=== PATIENT | male | born 1985 ===

== ENCOUNTER 2020-12-23 22:12 | Observation (INO) | payer SELFPAY ==
[2020-12-24] MEDS: BENZONATATE 100 MG CAP PO SCH (00:23)
[2020-12-24 01:23] LABS: Basophils % (Auto) 0.3 % (0.0-1.8); Eosinophils % (Auto) 0.1 % (0.0-4.3); Hematocrit 44.3 % (35.5-45.6); Hemoglobin 14.9 gm/dl (11.8-15.2); Lymphocytes # (Auto) 1.5 K/mm3 (1.2-5.4); Mean Corpuscular HGB Conc 34 % (32-34); Mean Corpuscular Volume 87 fl (84-94); Monocytes # (Auto) 0.6 K/mm3 (0.0-0.8); Monocytes % (Auto) 4.9 % (0.0-7.3); Platelet Count 310 K/mm3 (140-440); Red Blood Count 5.07 M/mm3 (3.65-5.03); Red Cell Distribution Width 13.9 % (13.2-15.2)
[2020-12-24 01:42] LABS: Alanine Aminotransferase 49 units/L (7-56); Albumin 4.9 g/dL (3.9-5); BUN/Creatinine Ratio 30; Blood Urea Nitrogen 18 mg/dL (9-20); Calcium 9.9 mg/dL (8.4-10.2); Hemolysis Index 5
[2020-12-24 01:46] LABS: Bilirubin,Urine NEG (Negative); Blood,Urine NEG (Negative); Color,Urine Amber (Yellow); Mucus,Urine 3+ /HPF
[2020-12-24] MEDS ORDERED: SODIUM CHLORIDE 0.9% 1000 ML 1,000 ML IV ONE (03:53)
[2020-12-24] MEDS ORDERED: MORPHINE 4 MG/1 ML INJ IV ONE (03:53)
[2020-12-24] MEDS ORDERED: ONDANSETRON 4 MG/2 ML INJ IV ONE (03:53)
--- NOTE | 2020-12-24 03:56 | Emergency Department Report ---
ED General Adult HPI - General Chief complaint: Abdominal Pain Stated complaint: AB PAIN Time Seen by Provider: 12/24/20 03:38 Source: patient Mode of arrival: Ambulatory Limitations: No Limitations - History of Present Illness Initial comments: 35-year-old male patient with history of alcohol use presents to the emergency department with complaints of abdominal pain, nausea, and vomiting starting yesterday. Pain is localized to the epigastric area. No history of similar symptoms. Bowel movements have been normal. No known sick contacts. Patient has been sober for the last 2 months. He used to drink approximately 6 drinks every week. No prior surgeries. Took Tylenol prior to arrival with limited relief. Denies fever, chills, hematemesis, black/bloody stools, skin color changes. Denies all other complaints at this time. - Related Data Allergies Allergy/AdvReac Type Severity Reaction Status Date / Time No Known Allergies Allergy Verified 12/24/20 00:52 ED Review of Systems ROS: Stated complaint: AB PAIN Other details as noted in HPI Other: GENERAL: Negative for fever, chills, weight change, anorexia, fatigue. ENT: Negative for ear pain, difficulty hearing, sore throat, nasal congestion, epistaxis. CARDIOVASCULAR: Negative for chest pain, palpitations, lower extremity swelling. PULMONARY: Negative for cough, dyspnea, wheezing, orthopnea, cyanosis. GASTROINTESTINAL: Positive for abdominal pain, nausea, vomiting. MUSCULOSKELETAL: Negative for joint pain, joint swelling, myalgias, back pain, neck pain. NEUROLOGICAL: Negative for headache, seizure, syncope, paresthesias, weakness. INTEGUMENTARY: Negative for erythema, rash, diaphoresis, laceration, ecchymosis. HEMATOLOGICAL: Negative for hemoptysis, hematemesis, hematochezia, hematuria. PSYCHIATRIC: Negative for hallucinations, suicidal ideation, homicidal ideation, anxiety, depression. ED Past Medical Hx - Past Medical History Previous Medical History?: No - Surgical History Past Surgical History?: No - Social History Smoking Status: Never Smoker Substance Use Type: None ED Physical Exam - General Limitations: No Limitations - Other Other exam information: General: Awake and alert. No acute distress. Head: Atraumatic, normocephalic. Eyes: EOMI. Pupils are equal and round. Normal sclera and conjunctiva. ENT: Oral mucosa is moist. Normal pharyngeal exam. Neck: Supple. No lymphadenopathy. Pulmonary: No respiratory distress. Clear to auscultation bilaterally. Cardiac: Regular rate and rhythm. Pulses are palpable and equal bilaterally. No lower extremity cyanosis or edema. Skin: Warm and dry. No rashes. Abdomen: Soft, non-protuberant. Diffuse abdominal tenderness most pronounced along the epigastric area without guarding, rigidity, or rebound. Bowel sounds are normal. No organomegaly or masses noted. Back: Normal alignment. No CVA tenderness. Extremities: Symmetrical. Full range of motion intact. Neurological: Alert and oriented, appropriately interactive, no focal deficits. Psych: Cooperative. Appropriate mood and affect. Speech is evenly metered. Thoughts are logically construed. ED Course Vital Signs 12/24/20 00:49 Temperature 98.0 F Pulse Rate 48 L Respiratory 18 Rate Blood Pressure 135/91 [Left] O2 Sat by Pulse 99 Oximetry ED Medical Decision Making - Lab Data Result diagrams: 12/24/20 00:55 12/24/20 00:55 - Radiology Data [facility] [address] [place] [address] Cat Scan Report Signed Patient: LISA DOMINGUEZ MR#: [id number] 42 : 1985 Acct:[id number] Age/Sex: 35 / M ADM Date: 12/23/20 Loc: ED Attending Dr: Ordering Physician: RAYMUNDO SUBRAMANIAN Date of Service: 12/24/20 Procedure(s): CT abdomen pelvis w con Accession Number(s): [id number] cc: RAYMUNDO SUBRAMANIAN CT ABDOMEN AND PELVIS WITH CONTRAST INDICATION / CLINICAL INFORMATION: Epigastric pain and vomiting. TECHNIQUE: Axial CT images were obtained through the abdomen and pelvis after Omnipaque 300, [address] scans at this location are performed using CT dose reduction for ALARA by means of automated exposure control. COMPARISON: None available. FINDINGS: LOWER CHEST: No significant abnormality. LIVER: Fatty infiltration of the liver. Subcentimeter cyst lateral segment left hepatic lobe. GALLBLADDER: Gallbladder wall is mildly prominent in thickness. No adjacent inflammation. BILE DUCTS: No significant abnormality. PANCREAS: No significant abnormality. SPLEEN: No significant abnormality. ADRENALS: No significant abnormality. RIGHT KIDNEY / URETER: No significant abnormality. LEFT KIDNEY / URETER: No significant abnormality. STOMACH / SMALL BOWEL: No significant abnormality. COLON: No significant abnormality. APPENDIX: No significant abnormality. PERITONEUM: No free fluid. No free air. No fluid collection. LYMPH NODES: No significant adenopathy. VASCULAR STRUCTURES: No significant abnormality. URINARY BLADDER: No significant abnormality. REPRODUCTIVE ORGANS: No significant abnormality. ADDITIONAL FINDINGS: None. SKELETAL SYSTEM: No significant abnormality. IMPRESSION: 1. Possible early cholecystitis. 2. Large, fatty liver. Signer Name: Sukumar Flanagan MD Signed: 12/24/2020 5:35 AM Workstation Name: [id number] Transcribed By: VÍCTOR Dictated By: Sukumar Flanagan MD Electronically Authenticated By: Sukumar Flanagan MD Signed Date/Time: 12/24/20534 DD/ 9 TD/TT: - Medical Decision Making Differential diagnosis including but not limited to: cholecystitis, pancreatitis, hepatobiliary obstruction, peptic ulcer disease, bowel obstruction, bowel perforation, esophagitis On reevaluation, patient remains stable. Repeat abdominal exam is benign. Labs show mild leukocytosis. CT of the abdomen/pelvis obtained for further evaluation. Enlarged fatty liver present and gallbladder wall is mildly prominent in thickness, suggestive of early cholecystitis. Ordered Zosyn and NPO status. Case discussed with Dr. Quinones, general surgeon, who recommends right upper quadrant ultrasound and agrees to evaluate patient on hospital admission. Case discussed with Dr. Castaneda, hospitalist, who agrees to admit. Patient expressed understanding and is agreeable to plan of care. Critical care attestation.: If time is entered above; I have spent that time in minutes in the direct care of this critically ill patient, excluding procedure time. ED Disposition Clinical Impression: Acute cholecystitis Disposition: ADMITTED INPATIENT Is pt being admited?: Yes Does the pt Need Aspirin: No Condition: Stable Time of Disposition: 06:53
--- NOTE | 2020-12-24 05:39 | Cat Scan Report ---
CT ABDOMEN AND PELVIS WITH CONTRAST INDICATION / CLINICAL INFORMATION: Epigastric pain and vomiting. TECHNIQUE: Axial CT images were obtained through the abdomen and pelvis after Omnipaque 300, 100 cc I V contrast. All CT scans at this location are performed using CT dose reduction for ALARA by means o f automated exposure control. COMPARISON: None available. FINDINGS: LOWER CHEST: No significant abnormality. LIVER: Fatty infiltration of the liver. Subcentimeter cyst lateral segment left hepatic lobe. GALLBLADDER: Gallbladder wall is mildly prominent in thickness. No adjacent inflammation. BILE DUCTS: No significant abnormality. PANCREAS: No significant abnormality. SPLEEN: No significant abnormality. ADRENALS: No significant abnormality. RIGHT KIDNEY / URETER: No significant abnormality. LEFT KIDNEY / URETER: No significant abnormality. STOMACH / SMALL BOWEL: No significant abnormality. COLON: No significant abnormality. APPENDIX: No significant abnormality. PERITONEUM: No free fluid. No free air. No fluid collection. LYMPH NODES: No significant adenopathy. VASCULAR STRUCTURES: No significant abnormality. URINARY BLADDER: No significant abnormality. REPRODUCTIVE ORGANS: No significant abnormality. ADDITIONAL FINDINGS: None. SKELETAL SYSTEM: No significant abnormality. IMPRESSION: 1. Possible early cholecystitis. 2. Large, fatty liver. Signer Name: Sukumar Flanagan MD Signed: 12/24/2020 5:35 AM Workstation Name: [id number]
[2020-12-24] MEDS ORDERED: PIPERACILLIN/TAZOBACTAM 3.375 3.375 GM/50 ML BAG IV ONE (06:16)
--- NOTE | 2020-12-24 07:50 | History and Physical Report ---
History of Present Illness Date of examination: 12/24/20 Date of admission: 12/24/20 06:53 Chief complaint: abdominal pain History of present illness: Patient is a 35-year-old male patient with history of alcohol use presents to the emergency department with complaints of abdominal pain, nausea, and vomiting starting yesterday. Pain is localized to the epigastric area. No history of similar symptoms. Bowel movements have been normal. No known sick contacts. Patient has been sober for the last 2 months. He used to drink approximately 6 drinks every week. No prior surgeries. Took Tylenol prior to arrival with limited relief. Denies fever, chills, hematemesis, black/bloody stools, skin color changes. Denies all other complaints at this time. We are asked to admit the patient for possible cholecystectomy and pain control. He is French speaking, was able to get a little more information. Past History Past Medical History: other Past Surgical History: Other Social history: , alcohol abuse (quit two months ago per pt), full code Family history: no significant family history Medications and Allergies Allergies Allergy/AdvReac Type Severity Reaction Status Date / Time No Known Allergies Allergy Verified 12/24/20 00:52 Active Meds: Active Medications Acetaminophen (Acetaminophen 325 Mg Tab) 650 mg PO Q4H PRN PRN Reason: Pain MILD(1-3)/Fever >100.5/THOMAS Albuterol (Albuterol 2.5 Mg/3 Ml Nebu) 2.5 mg IH Q4HRT PRN PRN Reason: Shortness Of Breath Dextrose (Dextrose 50% In Water (25gm) 50 Ml Syringe) 50 ml IV Q30MIN PRN; Protocol PRN Reason: Hypoglycemia Famotidine (Famotidine 20 Mg/2 Ml Inj) 20 mg IV BID VASILIY Hydromorphone HCl (Hydromorphone 1 Mg/1 Ml Inj) 0.5 mg IV Q3H PRN PRN Reason: Pain , Severe (7-10) Morphine Sulfate (Morphine 2 Mg/1 Ml Inj) 2 mg IV Q4H PRN PRN Reason: Pain, Moderate (4-6) Naloxone HCl (Naloxone 0.4 Mg/1 Ml Inj) 0.1 mg IV Q2MIN PRN PRN Reason: Res Rate </= 8 or 02 SAT < 92% Ondansetron HCl (Ondansetron 4 Mg/2 Ml Inj) 4 mg IV Q8H PRN PRN Reason: Nausea And Vomiting Senna (Sennosides 8.6 Mg Tab) 8.6 mg PO Q12HR PRN PRN Reason: constipation Sodium Chloride (Sodium Chloride 0.9% 10 Ml Flush Syringe) 10 ml IV PRN PRN PRN Reason: LINE FLUSH Review of Systems All systems: negative Constitutional: weakness, malaise, lethargy Gastrointestinal: abdominal pain Musculoskeletal: neck pain, muscle weakness Exam - Physical Exam Narrative exam: VITAL SIGNS: Reviewed. GENERAL: The patient appears normally developed, Vital signs as documented. HEAD: No signs of head trauma. EYES: Pupils are equal. Extraocular motions intact. EARS: Hearing grossly intact. MOUTH: Oropharynx is normal. NECK: No adenopathy, no JVD. CHEST: Chest with clear breath sounds bilaterally. No wheezes, rales, or rhonchi. CARDIAC: Regular rate and rhythm. S1 and S2, without murmurs, gallops, or rubs. VASCULAR: No Edema. Peripheral pulses normal and equal in all extremities. ABDOMEN: Soft, tender right lower quadrant, and non distended. No rebound or guarding, and no masses palpated. Bowel Sounds normal. MUSCULOSKELETAL: Good range of motion of all major joints. Extremities without clubbing, cyanosis or edema. NEUROLOGIC EXAM: Alert and oriented x 3 No focal sensory or strength deficits. Speech normal. Follows commands. PSYCHIATRIC: Mood normal. SKIN: detail exam as documented in skin assessment - Constitutional Vitals: Temp Pulse Resp BP Pulse Ox 98.0 F 48 L 18 135/91 99 12/24/20 00:49 12/24/20 00:49 12/24/20 00:49 12/24/20 00:49 12/24/20 00:49 Results - Labs CBC & Chem 7: 12/24/20 00:55 12/24/20 00:55 Labs: Laboratory Last Values WBC 12.2 K/mm3 (4.5-11.0) H 12/24/20 00:55 RBC 5.07 M/mm3 (3.65-5.03) H 12/24/20 00:55 Hgb 14.9 gm/dl (11.8-15.2) 12/24/20 00:55 Hct 44.3 % (35.5-45.6) 12/24/20 00:55 MCV 87 fl (84-94) 12/24/20 00:55 MCH 29 pg (28-32) 12/24/20 00:55 MCHC 34 % (32-34) 12/24/20 00:55 RDW 13.9 % (13.2-15.2) 12/24/20 00:55 Plt Count 310 K/mm3 (140-440) 12/24/20 00:55 Lymph % (Auto) 12.0 % (13.4-35.0) L 12/24/20 00:55 [place] % (Auto) 4.9 % (0.0-7.3) 12/24/20 00:55 Eos % (Auto) 0.1 % (0.0-4.3) 12/24/20 00:55 Baso % (Auto) 0.3 % (0.0-1.8) 12/24/20 00:55 Lymph # (Auto) 1.5 K/mm3 (1.2-5.4) 12/24/20 00:55 [place] # (Auto) 0.6 K/mm3 (0.0-0.8) 12/24/20 00:55 Eos # (Auto) 0.0 K/mm3 (0.0-0.4) 12/24/20 00:55 Baso # (Auto) 0.0 K/mm3 (0.0-0.1) 12/24/20 00:55 Seg Neutrophils % 82.7 % (40.0-70.0) H 12/24/20 00:55 Seg Neutrophils # 10.1 K/mm3 (1.8-7.7) H 12/24/20 00:55 Sodium 141 mmol/L (137-145) 12/24/20 00:55 Potassium 4.4 mmol/L (3.6-5.0) 12/24/20 00:55 Chloride 102.1 mmol/L (98-107) 12/24/20 00:55 Carbon Dioxide 25 mmol/L (22-30) 12/24/20 00:55 Anion Gap 18 mmol/L 12/24/20 00:55 BUN 18 mg/dL (9-20) 12/24/20 00:55 Creatinine 0.6 mg/dL (0.8-1.3) L 12/24/20 00:55 Estimated GFR > 60 ml/min 12/24/20 00:55 BUN/Creatinine Ratio 30 % 12/24/20 00:55 Glucose 152 mg/dL (75-100) H 12/24/20 00:55 Calcium 9.9 mg/dL (8.4-10.2) 12/24/20 00:55 Magnesium 2.00 mg/dL (1.7-2.3) 12/24/20 03:59 Total Bilirubin 0.40 mg/dL (0.1-1.2) 12/24/20 00:55 AST 34 units/L (5-40) 12/24/20 00:55 ALT 49 units/L (7-56) 12/24/20 00:55 Alkaline Phosphatase 111 units/L (35-129) 12/24/20 00:55 Total Protein 8.1 g/dL (6.3-8.2) 12/24/20 00:55 Albumin 4.9 g/dL (3.9-5) 12/24/20 00:55 Albumin/Globulin Ratio 1.5 % 12/24/20 00:55 Lipase 14 units/L (13-60) 12/24/20 03:59 Urine Color Xochitl (Yellow) 12/24/20 01:05 Urine Turbidity Clear (Clear) 12/24/20 01:05 Urine pH 5.0 (5.0-7.0) 12/24/20 01:05 Ur Specific [place] 1.041 (1.003-1.030) H 12/24/20 01:05 Urine Protein 30 mg/dl mg/dL (Negative) 12/24/20 01:05 Urine Glucose (UA) Neg mg/dL (Negative) 12/24/20 01:05 Urine Ketones Neg mg/dL (Negative) 12/24/20 01:05 Urine Blood Neg (Negative) 12/24/20 01:05 Urine Nitrite Neg (Negative) 12/24/20 01:05 Urine Bilirubin Neg (Negative) 12/24/20 01:05 Urine Urobilinogen 2.0 mg/dL (<2.0) 12/24/20 01:05 Ur Leukocyte Esterase Neg (Negative) 12/24/20 01:05 Urine WBC (Auto) 1.0 /HPF (0.0-6.0) 12/24/20 01:05 Urine RBC (Auto) 6.0 /HPF (0.0-6.0) 12/24/20 01:05 Urine Mucus 3+ /HPF 12/24/20 01:05 Plasma/Serum Alcohol < 0.01 % (0-0.07) 12/24/20 03:59 Assessment and Plan Assessment and plan: Patient is a 35-year-old male patient with history of alcohol use presents to the emergency department with complaints of abdominal pain, nausea, and vomiting starting yesterday. Pain is localized to the epigastric area. No history of similar symptoms. Bowel movements have been normal. No known sick contacts. Patient has been sober for the last 2 months. He used to drink approximately 6 drinks every week. No prior surgeries. Took Tylenol prior to arrival with l imited relief. Denies fever, chills, hematemesis, black/bloody stools, skin color changes. Denies all other complaints at this time. We are asked to admit the patient for possible cholecystectomy and pain control. He is French speaking, was able to get a little more information. Acute cholecystitis ETOH use disorder Leukocytosis possible inflammation Plan Admit to observation to surgical unit surgeon already consulted Abx Culture if fever Monitor for ETOH WITHDRAWAL DVT/GI PROPHY Plan discussed with patient Possible discharge in am. Advance Directives: Yes Plan of care discussed with patient/family: Yes
--- NOTE | 2020-12-24 07:56 | Ultrasound Report ---
LIMITED RUQ ABDOMINAL ULTRASOUND INDICATION: RUQ/epigastric pain - cholecystitis on CT. COMPARISON: CT abdomen pelvis with contrast performed earlier today. FINDINGS: Pancreas: Visualized portions show no significant abnormality. Abdominal Aorta: No significant abnormality. IVC: No significant abnormality. Liver: The liver measures 18.1 cm in length. The liver is mildly enlarged and echogenic consistent w ith steatosis. Normal hepatopedal blood flow in the main portal vein. Gallbladder: Numerous shadowing gallstones are identified in the gallbladder. There is moderate gallb ladder wall thickening measuring up to 6.1 mm. No obvious pericholecystic fluid collection.. Bile ducts: No significant abnormality. Common bile duct measures 3.6 mm. Right kidney: No significant abnormality visualized. Free fluid: None. Additional Findings: None. IMPRESSION: Cholelithiasis. There is moderate gallbladder wall thickening. Acute cholecystitis should be consider ed. Mild hepatomegaly with steatosis.. Signer Name: Antoine Salguero Jr, MD Signed: 12/24/2020 7:51 AM Workstation Name: [id number]
[2020-12-24] MEDS ORDERED: ALBUTEROL 2.5 MG/3 ML NEBU IH PRN (08:00)
[2020-12-24] MEDS ORDERED: PIPERACILLIN/TAZOBACTAM 3.375 3.375 GM/50 ML BAG IV SCH (08:00)
[2020-12-24] MEDS ORDERED: HYDROmorphone 1 MG/1 ML INJ IV PRN (08:00)
[2020-12-24] MEDS ORDERED: ONDANSETRON 4 MG/2 ML INJ IV PRN (08:00)
[2020-12-24] MEDS ORDERED: NALOXONE 0.4 MG/1 ML INJ IV PRN (08:00)
[2020-12-24] MEDS: MORPHINE 2 MG/1 ML INJ IV PRN ×2 (08:00→23:41)
[2020-12-24] MEDS ORDERED: ACETAMINOPHEN 325 MG TAB PO PRN (08:00)
[2020-12-24] MEDS ORDERED: DEXTROSE 50% IN WATER (25GM) 50 ML SYRINGE IV PRN (08:00)
[2020-12-24] MEDS ORDERED: SCOPOLAMINE TRANSDERMAL PATCH 72 HR TD SCH (10:00)
[2020-12-24] MEDS ORDERED: SENNOSIDES 8.6 MG TAB PO PRN (10:00)
--- NOTE | 2020-12-24 11:48 | Consultation ---
History of Present Illness Consult date: 12/24/20 Reason for consult: abdominal pain Chief complaint: Abdominal pain - History of present illness History of present illness: 35-year-old male with no past medical history presents to the emergency room wit h 1 day history of epigastric abdominal pain radiating to the right upper quadrant. Pain is described as sharp and constant. He has never had pain like this in the past. He states that he ate tacos and at approximately 6 PM the pain started. He has experienced nausea and nonbloody/nonbilious emesis. No diarrhea or constipation. No fevers or chills. Past History Past Medical History: No medical history Past Surgical History: No surgical history Social history: no significant social history Family history: no significant family history Medications and Allergies Allergies Allergy/AdvReac Type Severity Reaction Status Date / Time No Known Allergies Allergy Verified 12/24/20 00:52 Active Meds: Active Medications Acetaminophen (Acetaminophen 325 Mg Tab) 650 mg PO Q4H PRN PRN Reason: Pain MILD(1-3)/Fever >100.5/THOMAS Albuterol (Albuterol 2.5 Mg/3 Ml Nebu) 2.5 mg IH Q4HRT PRN PRN Reason: Shortness Of Breath Dextrose (Dextrose 50% In Water (25gm) 50 Ml Syringe) 50 ml IV Q30MIN PRN; Protocol PRN Reason: Hypoglycemia Famotidine (Famotidine 20 Mg/2 Ml Inj) 20 mg IV BID VASILIY Hydromorphone HCl (Hydromorphone 1 Mg/1 Ml Inj) 0.5 mg IV Q3H PRN PRN Reason: Pain , Severe (7-10) Piperacillin Sod/Tazobactam Sod (Zosyn/Ns 4.5gm/100ml) 4.5 gm in 100 mls @ 200 mls/hr IV Q8HR VASILIY Morphine Sulfate (Morphine 2 Mg/1 Ml Inj) 2 mg IV Q4H PRN PRN Reason: Pain, Moderate (4-6) Last Admin: 12/24/20 08:00 Dose: 2 mg Documented by: Naloxone HCl (Naloxone 0.4 Mg/1 Ml Inj) 0.1 mg IV Q2MIN PRN PRN Reason: Res Rate </= 8 or 02 SAT < 92% Ondansetron HCl (Ondansetron 4 Mg/2 Ml Inj) 4 mg IV Q8H PRN PRN Reason: Nausea And Vomiting Last Admin: 12/24/20 08:15 Dose: 4 mg Documented by: Scopolamine (Scopolamine Transdermal Patch 72 Hr) 1 each TD ONCE VASILIY Stop: 12/24/20 13:00 Senna (Sennosides 8.6 Mg Tab) 8.6 mg PO Q12HR PRN PRN Reason: constipation Sodium Chloride (Sodium Chloride 0.9% 10 Ml Flush Syringe) 10 ml IV PRN PRN PRN Reason: LINE FLUSH Review of Systems All systems: negative (10 point ROS performed and negative except for that listed in HPI) Exam Vital Signs Temp Pulse Resp BP Pulse Ox 98.0 F 48 L 18 135/91 99 12/24/20 00:49 12/24/20 00:49 12/24/20 00:49 12/24/20 00:49 12/24/20 00:49 Narrative exam: Gen.: Awake, alert, oriented x3. No apparent distress ENT: Trachea midline. No lymphadenopathy. No scleral icterus or conjunctival pallor CV: S1, S2 present Respiratory: No audible wheezes Abdomen: Soft, nondistended, tenderness to palpation in the right upper quadrant and epigastrium. No rebound, rigidity, guarding Extremities: No clubbing, cyanosis, edema Results - Labs 12/24/20 00:55 12/24/20 00:55 Abnormal lab results 12/24/20 12/24/20 12/24/20 Range/Units 00:55 00:55 01:05 WBC 12.2 H (4.5-11.0) K/mm3 RBC 5.07 H (3.65-5.03) M/mm3 Lymph % (Auto) 12.0 L (13.4-35.0) % Seg Neutrophils % 82.7 H (40.0-70.0) % Seg Neutrophils # 10.1 H (1.8-7.7) K/mm3 Creatinine 0.6 L (0.8-1.3) mg/dL Glucose 152 H (75-100) mg/dL Ur Specific [place] 1.041 H (1.003-1.030) Diabetes panel 12/24/20 Range/Units 00:55 Sodium 141 (137-145) mmol/L Potassium 4.4 (3.6-5.0) mmol/L Chloride 102.1 (98-107) mmol/L Carbon Dioxide 25 (22-30) mmol/L BUN 18 (9-20) mg/dL Creatinine 0.6 L (0.8-1.3) mg/dL Glucose 152 H (75-100) mg/dL Calcium 9.9 (8.4-10.2) mg/dL AST 34 (5-40) units/L ALT 49 (7-56) units/L Alkaline Phosphatase 111 (35-129) units/L Total Protein 8.1 (6.3-8.2) g/dL Albumin 4.9 (3.9-5) g/dL Calcium panel 12/24/20 Range/Units 00:55 Calcium 9.9 (8.4-10.2) mg/dL Albumin 4.9 (3.9-5) g/dL Pituitary panel 12/24/20 Range/Units 00:55 Sodium 141 (137-145) mmol/L Potassium 4.4 (3.6-5.0) mmol/L Chloride 102.1 (98-107) mmol/L Carbon Dioxide 25 (22-30) mmol/L BUN 18 (9-20) mg/dL Creatinine 0.6 L (0.8-1.3) mg/dL Glucose 152 H (75-100) mg/dL Calcium 9.9 (8.4-10.2) mg/dL Adrenal panel 12/24/20 Range/Units 00:55 Sodium 141 (137-145) mmol/L Potassium 4.4 (3.6-5.0) mmol/L Chloride 102.1 (98-107) mmol/L Carbon Dioxide 25 (22-30) mmol/L BUN 18 (9-20) mg/dL Creatinine 0.6 L (0.8-1.3) mg/dL Glucose 152 H (75-100) mg/dL Calcium 9.9 (8.4-10.2) mg/dL Total Bilirubin 0.40 (0.1-1.2) mg/dL AST 34 (5-40) units/L ALT 49 (7-56) units/L Alkaline Phosphatase 111 (35-129) units/L Total Protein 8.1 (6.3-8.2) g/dL Albumin 4.9 (3.9-5) g/dL - Imaging CT scan - abdomen: report reviewed, image reviewed CT scan - pelvis: report reviewed, image reviewed US - abdomen: report reviewed, image reviewed Assessment and Plan 35-year-old male with acute cholecystitis Plan: 1. NPO 2. IVF 3. IV abx 4. prn pain control 5. DVT ppx 6. Recommend cholecystectomy. I discussed all risk, benefits, alternatives to surgery with the patient. Also discussed with his on speaker phone on his telephone. All questions answered. Patient is agreeable to proceed with surgery. Consent obtained for lap ramses, possible open, possible cholangiogram. Patient added to the OR schedule for today. Thank you for this consultation. Please call with any questions or concerns. Evaluation and treatment of this patient was during the time of the national and state emergency arising from COVID19 coronavirus pandemic. Treatment and procedures performed meet the current and available best practice and guidelines for patient during the COVID pandemic.
[2020-12-24] MEDS: FAMOTIDINE 20 MG/2 ML INJ IV SCH ×2 (12:34→23:26)
[2020-12-24] MEDS ORDERED: BUPIVACAINE/PF (0.25%) 2.5 MG/ML 30 ML VIAL INFILTRATI ONE (14:43)
[2020-12-24] MEDS ORDERED: LIDOCAINE (1%) 10 MG/1 ML VIAL 20 ML MDV ONE ×2 (14:43→15:16)
[2020-12-24] MEDS: PIPERACIL/TAZOBACTA 4.5/NS 100 4.5 GM/100 ML VIAL IV SCH ×2 (15:04→23:15)
[2020-12-24] MEDS ORDERED: BUPIVACAINE/PF (0.5%) 5 MG/1 ML 30 ML VIAL INFILTRATI ONE ×3 (15:16→18:26)
[2020-12-24] MEDS ORDERED: PIPERACIL/TAZOBACTA 4.5/NS 100 4.5 GM/100 ML VIAL IV SCH (15:30)
--- NOTE | 2020-12-24 15:46 | Anesthesia Day of Surgery ---
Anesthesia Day of Surgery - Day of Surgery Patient Examined: Yes Patient H&P Reviewed: Yes Patient is NPO: Yes
--- NOTE | 2020-12-24 15:46 | Anesthesia Consultation ---
Anesthesia Consult and Med Hx Date of service: 12/24/20 - Airway Anesthetic Teeth Evaluation: Good ROM Head & Neck: Adequate Mental/Hyoid Distance: Adequate Mallampati Class: Class III Intubation Access Assessment: Possibly Difficult - Pre-Operative Health Status ASA Pre-Surgery Classification: ASA2 Proposed Anesthetic Plan: General - Pulmonary Hx Smoking: No Hx Respiratory Symptoms: Yes (URI (cough) 2 wks ago) SOB: No - Cardiovascular System Hx Hypertension: No - Central Nervous System CVA: No - Endocrine Hx Renal Disease: No Hx Liver Disease: No Hx Insulin Dependent Diabetes: No Hx Non-Insulin Dependent Diabetes: No Hx Thyroid Disease: No - Other Systems Hx Obesity: No - Additional Comments Anesthesia Medical History Comments: No prior GA. Presented with cholecystitis scheduled for lap ramses. Anesthetic plan discussed with patient and over the phone per patient request.
[2020-12-24] MEDS ORDERED: SODIUM CHLORIDE 0.9% IRR 1,500 ML BOTTLE IR ONE ×2 (16:48→18:26)
[2020-12-24] MEDS ORDERED: LIDOCAINE (1%) 10 MG/1 ML VIAL 20 ML MDV INFILTRATI ONE ×2 (16:48→18:26)
[2020-12-24] MEDS ORDERED: HYDROmorphone 1 MG/1 ML INJ ONE (17:57)
[2020-12-24] MEDS ORDERED: propofoL 200 MG/20 ML VIAL IV ONE (17:57)
[2020-12-24] MEDS ORDERED: LIDOCAINE MPF (2%) 20 MG/1 ML VIAL 5 ML ONE (17:59)
[2020-12-24] MEDS ORDERED: SUCCINYLCHOLINE CHLORIDE 200 MG/10 ML INJ MDV ONE (17:59)
[2020-12-24] MEDS ORDERED: ROCURONIUM 50 MG/5 ML INJ IV ONE ×2 (17:59→19:20)
[2020-12-24] MEDS ORDERED: WATER FOR IRRIG STERILE 1,500 ML BOTTLE IR ONE (18:26)
[2020-12-24] MEDS ORDERED: SODIUM CHLORIDE 0.9% IRRIG SOLN 2000 ML IR ONE (18:41)
[2020-12-24] MEDS ORDERED: LACTATED RINGERS 1,000 ML ONE ×2 (18:54→19:20)
[2020-12-24] MEDS ORDERED: GLYCOPYRROLATE 0.4 MG/2 ML INJ ONE (19:39)
[2020-12-24] MEDS ORDERED: NEOSTIGMINE 10MG/10 ML INJ MDV ONE (19:39)
[2020-12-24] MEDS ORDERED: ONDANSETRON 4 MG/2 ML INJ ONE (19:40)
--- NOTE | 2020-12-24 20:25 | Post Operative Note ---
Pre-op diagnosis: acute calculus cholecystitis Post-op diagnosis: same Findings: Severely inflamed gallbladder with pericholecystic fluid and thickened wall. Distended with large stones at mid body and neck Adhesions from omentum and duodenum to gallbladder Procedure: laparoscopic cholecystectomy Anesthesia: GETA, local Surgeon: KEITH ROSA Estimated blood loss: 50-100ml Pathology: list (gallbladder) Specimen disposition: to lab Condition: stable Disposition: PACU
--- NOTE | 2020-12-24 20:51 | Post Anesthesia Evaluation ---
- Post Anesthesia Evaluation Patient Participated: Yes Airway Patent: Yes Stable Respiratory Function: Yes Nausea/Vomiting: No Temp > 96.8F: Yes Pain Manageable: Yes Adequeate Hydration: Yes Anesthesia Complications: No
[2020-12-24] MEDS: SODIUM CHLORIDE 0.9% 1000 ML 1,000 ML IV SCH (23:40)
[2020-12-25] MEDS: BENZONATATE 100 MG CAP PO SCH ×3 (05:18→21:02)
[2020-12-25] MEDS: PIPERACIL/TAZOBACTA 4.5/NS 100 4.5 GM/100 ML VIAL IV SCH ×3 (06:09→21:42)
[2020-12-25 06:11] LABS: Basophils % (Auto) 0.2 % (0.0-1.8); Eosinophils # (Auto) 0.1 K/mm3 (0.0-0.4); Eosinophils % (Auto) 0.7 % (0.0-4.3); Hematocrit 38.6 % (35.5-45.6); Hemoglobin 13.3 gm/dl (11.8-15.2); Lymphocytes # (Auto) 2.3 K/mm3 (1.2-5.4); Lymphocytes % (Auto) 27.9 % (13.4-35.0); Mean Corpuscular HGB Conc 34 % (32-34); Mean Corpuscular Volume 88 fl (84-94); Monocytes # (Auto) 0.8 K/mm3 (0.0-0.8); Monocytes % (Auto) 10.1 % (0.0-7.3); Platelet Count 284 K/mm3 (140-440)
[2020-12-25 07:58] LABS: Alanine Aminotransferase 59 units/L (7-56); Albumin 3.6 g/dL (3.9-5); Blood Urea Nitrogen 13 mg/dL (9-20); Calcium 8.9 mg/dL (8.4-10.2); Hemolysis Index 26
[2020-12-25 08:08] LABS: BUN/Creatinine Ratio 22
--- NOTE | 2020-12-25 08:22 | Discharge Summary ---
<KEITH ROSA - Last Filed: 12/26/20 11:04> Providers - Providers Date of Admission: 12/24/20 06:53 Attending physician: ANIVAL NEGRETE MD 12/24/20 06:23 Consult to Physician [CONS] Stat Comment: RAYMUNDO Mendez spoke with Dr. Rosa @ 0620 Consulting Provider: KEITH ROSA Physician Instructions: Reason For Exam: acute cholecystitis Primary care physician: [employer]MENT SPECIALIST Hospitalization Condition: Stable Disposition: 01 HOME / SELF CARE / HOMELESS Exam - Constitutional Vitals: Temp Pulse Resp BP Pulse Ox 98.1 F 54 L 20 105/62 94 12/26/20 07:55 12/26/20 07:55 12/26/20 07:55 12/26/20 07:55 12/26/20 09:56 Plan Activity: other (no heavy lifting of more than 20 lbs for next 1 week) Wound: per your surgeon's advice (may shower tomorrow. Pat incisions dry, do not scrub or submerge in bath/hottub/pool for 2 weeks. Keep right sided incision covered with bandaid.) Follow up with: PRIMARY MD PAULO [Primary Care Provider] - 3-5 Days KEITH ROSA DO [Staff Physician] - 14 Days Prescriptions: HYDROcodone/APAP 5-325 [[place] 5/325] 1 each PO Q6HR PRN #14 tablet PRN Reason: Pain Sennosides Tab [Senokot] 8.6 mg PO Q12HR PRN #14 tablet PRN Reason: constipation Benzonatate [Tessalon Perles] 100 mg PO Q8HR #14 capsule <ANIVAL NEGRETE - Last Filed: 12/26/20 15:43> Providers - Providers Date of Admission: 12/24/20 06:53 Attending physician: ANIVAL NEGRETE MD 12/24/20 06:23 Consult to Physician [CONS] Stat Comment: RAYMUNDO Mendez spoke with Dr. Rosa @ 0620 Consulting Provider: KEITH ROSA Physician Instructions: Reason For Exam: acute cholecystitis Primary care physician: [employer]QUIPMENT SPECIALIST Hospitalization Reason for admission: Abdominal pain Hospital course: Patient is a 35-year-old male patient with history of alcohol use presents to the emergency department with complaints of abdominal pain, nausea, and vomiting starting yesterday. Pain is localized to the epigastric area. No history of similar symptoms. Bowel movements have been normal. No known sick contacts. Patient has been sober for the last 2 months. He used to drink approximately 6 drinks every week. No prior surgeries. Took Tylenol prior to arrival with limited relief. Denies fever, chills, hematemesis, black/bloody stools, skin color changes. Denies all other complaints at this time. We are asked to admit the patient for possible cholecystectomy and pain control. He is Moh[place] speaking, was able to get a little more information. 9/3Patient was seen by surgery and underwent laparoscopic cholecystectomy with estimated blood loss of 50-100 mL. He is clinically stable this morning. Other findings as noted below. Leukocytosis is resolved. He will be discharged if cleared by the surgeon. ZANA drain has been removed Severely inflamed gallbladder with pericholecystic fluid and thickened wall. Distended with large stones at mid body and neck Adhesions from omentum and duodenum to gallbladder Procedure: laparoscopic cholecystectomy Acute cholecystitis ETOH use disorder Leukocytosis possible inflammation Final Discharge Diagnosis (Prints w/discharge instructions): Acute cholecystectomy Time spent for discharge: 35-minute Core Measure Documentation - Palliative Care Palliative Care/ Comfort Measures: Not Applicable - Core Measures Any of the following diagnoses?: none Exam - Physical Exam Narrative exam: VITAL SIGNS: Reviewed. GENERAL: The patient appears normally developed, Vital signs as documented. HEAD: No signs of head trauma. EYES: Pupils are equal. Extraocular motions intact. EARS: Hearing grossly intact. MOUTH: Oropharynx is normal. NECK: No adenopathy, no JVD. CHEST: Chest with clear breath sounds bilaterally. No wheezes, rales, or rhonchi. CARDIAC: Regular rate and rhythm. S1 and S2, without murmurs, gallops, or rubs. VASCULAR: No Edema. Peripheral pulses normal and equal in all extremities. ABDOMEN: Laparoscopic sites intact with dressing. Mildly tender throughout surgical site soft, and non distended. No rebound or guarding, and no masses palpated. Bowel Sounds normal. MUSCULOSKELETAL: Good range of motion of all major joints. Extremities without clubbing, cyanosis or edema. NEUROLOGIC EXAM: Alert and oriented x 3 No focal sensory or strength d eficits. Speech normal. Follows commands. PSYCHIATRIC: Mood normal. SKIN: detail exam as documented in skin assessment - Constitutional Vitals: Temp Pulse Resp BP Pulse Ox 98.0 F 46 L 14 108/60 100 12/25/20 03:19 12/25/20 03:19 12/25/20 03:19 12/25/20 03:19 12/25/20 03:19 Plan Activity: advance as tolerated, fall precautions Diet: low fat Wound: per your surgeon's advice
[2020-12-25] MEDS: FAMOTIDINE 20 MG/2 ML INJ IV SCH ×2 (11:34→21:02)
[2020-12-25] MEDS: SODIUM CHLORIDE 0.9% 1000 ML 1,000 ML IV SCH ×2 (14:40→20:57)
--- NOTE | 2020-12-25 15:15 | Progress Note ---
Assessment and Plan Assessment and plan: Patient is a 35-year-old male patient with history of alcohol use presents to the emergency department with complaints of abdominal pain, nausea, and vomiting starting yesterday. Pain is localized to the epigastric area. No history of similar symptoms. Bowel movements have been normal. No known sick contacts. Patient has been sober for the last 2 months. He used to drink approximately 6 drinks every week. No prior surgeries. Took Tylenol prior to arrival with limited relief. Denies fever, chills, hematemesis, black/bloody stools, skin color changes. Denies all other complaints at this time. We are asked to admit the patient for possible cholecystectomy and pain control. He is Monegasque speaking, was able to get a little more information. Acute cholecystitis ETOH use disorder Leukocytosis possible inflammation Plan 12/25: Continue supportive care. No evidence of EtOH withdrawal. Patient is status post lap cholecystectomy with estimated blood loss of 52-100 mL. Surgery to reevaluate today and possible removal of ZANA drain prior to discharge in a.m. if patient is improving. Abx Culture if fever Monitor for ETOH WITHDRAWAL DVT/GI PROPHY Plan discussed with patient Possible discharge in am. History Interval history: Patient seen and examined this morning resting comfortably still with some mild abdominal pain ZANA drain in place Hospitalist Physical - Physical exam Narrative exam: VITAL SIGNS: Reviewed. GENERAL: The patient appears normally developed, Vital signs as documented. HEAD: No signs of head trauma. EYES: Pupils are equal. Extraocular motions intact. EARS: Hearing grossly intact. MOUTH: Oropharynx is normal. NECK: No adenopathy, no JVD. CHEST: Chest with clear breath sounds bilaterally. No wheezes, rales, or rhonchi. CARDIAC: Regular rate and rhythm. S1 and S2, without murmurs, gallops, or rubs. VASCULAR: No Edema. Peripheral pulses normal and equal in all extremities. ABDOMEN: Laparoscopic sites intact with dressing. ZANA drain in place mildly tender throughout surgical site soft, and non distended. No rebound or guardin g, and no masses palpated. Bowel Sounds normal. MUSCULOSKELETAL: Good range of motion of all major joints. Extremities without clubbing, cyanosis or edema. NEUROLOGIC EXAM: Alert and oriented x 3 No focal sensory or strength deficits. Speech normal. Follows commands. PSYCHIATRIC: Mood normal. SKIN: detail exam as documented in skin assessment - Constitutional Vitals: Temp Pulse Resp BP Pulse Ox 98.3 F 50 L 18 103/58 99 12/25/20 11:18 12/25/20 11:18 12/25/20 11:18 12/25/20 11:18 12/25/20 11:18 Results - Labs CBC & Chem 7: 12/25/20 04:20 12/25/20 04:20 Labs: Laboratory Last Values WBC 8.2 K/mm3 (4.5-11.0) 12/25/20 04:20 RBC 4.40 M/mm3 (3.65-5.03) 12/25/20 04:20 Hgb 13.3 gm/dl (11.8-15.2) 12/25/20 04:20 Hct 38.6 % (35.5-45.6) 12/25/20 04:20 MCV 88 fl (84-94) 12/25/20 04:20 MCH 30 pg (28-32) 12/25/20 04:20 MCHC 34 % (32-34) 12/25/20 04:20 RDW 14.0 % (13.2-15.2) 12/25/20 04:20 Plt Count 284 K/mm3 (140-440) 12/25/20 04:20 Lymph % (Auto) 27.9 % (13.4-35.0) 12/25/20 04:20 [place] % (Auto) 10.1 % (0.0-7.3) H 12/25/20 04:20 Eos % (Auto) 0.7 % (0.0-4.3) 12/25/20 04:20 Baso % (Auto) 0.2 % (0.0-1.8) 12/25/20 04:20 Lymph # (Auto) 2.3 K/mm3 (1.2-5.4) 12/25/20 04:20 [place] # (Auto) 0.8 K/mm3 (0.0-0.8) 12/25/20 04:20 Eos # (Auto) 0.1 K/mm3 (0.0-0.4) 12/25/20 04:20 Baso # (Auto) 0.0 K/mm3 (0.0-0.1) 12/25/20 04:20 Seg Neutrophils % 61.1 % (40.0-70.0) 12/25/20 04:20 Seg Neutrophils # 5.0 K/mm3 (1.8-7.7) 12/25/20 04:20 Sodium 140 mmol/L (137-145) 12/25/20 04:20 Potassium 4.1 mmol/L (3.6-5.0) 12/25/20 04:20 Chloride 104.7 mmol/L (98-107) 12/25/20 04:20 Carbon Dioxide 28 mmol/L (22-30) 12/25/20 04:20 Anion Gap 11 mmol/L 12/25/20 04:20 BUN 13 mg/dL (9-20) 12/25/20 04:20 Creatinine 0.6 mg/dL (0.8-1.3) L 12/25/20 04:20 Estimated GFR > 60 ml/min 12/25/20 04:20 BUN/Creatinine Ratio 22 % 12/25/20 04:20 Glucose 99 mg/dL (75-100) 12/25/20 04:20 POC Glucose 100 mg/dL (70-105) 12/25/20 11:17 Calcium 8.9 mg/dL (8.4-10.2) 12/25/20 04:20 Magnesium 2.00 mg/dL (1.7-2.3) 12/24/20 03:59 Total Bilirubin 0.80 mg/dL (0.1-1.2) 12/25/20 04:20 AST 51 units/L (5-40) H 12/25/20 04:20 ALT 59 units/L (7-56) H 12/25/20 04:20 Alkaline Phosphatase 80 units/L (35-129) 12/25/20 04:20 Total Protein 6.8 g/dL (6.3-8.2) 12/25/20 04:20 Albumin 3.6 g/dL (3.9-5) L 12/25/20 04:20 Albumin/Globulin Ratio 1.1 % 12/25/20 04:20 Lipase 14 units/L (13-60) 12/24/20 03:59 Urine Color Xochitl (Yellow) 12/24/20 01:05 Urine Turbidity Clear (Clear) 12/24/20 01:05 Urine pH 5.0 (5.0-7.0) 12/24/20 01:05 Ur Specific Bandy 1.041 (1.003-1.030) H 12/24/20 01:05 Urine Protein 30 mg/dl mg/dL (Negative) 12/24/20 01:05 Urine Glucose (UA) Neg mg/dL (Negative) 12/24/20 01:05 Urine Ketones Neg mg/dL (Negative) 12/24/20 01:05 Urine Blood Neg (Negative) 12/24/20 01:05 Urine Nitrite Neg (Negative) 12/24/20 01:05 Urine Bilirubin Neg (Negative) 12/24/20 01:05 Urine Urobilinogen 2.0 mg/dL (<2.0) 12/24/20 01:05 Ur Leukocyte Esterase Neg (Negative) 12/24/20 01:05 Urine WBC (Auto) 1.0 /HPF (0.0-6.0) 12/24/20 01:05 Urine RBC (Auto) 6.0 /HPF (0.0-6.0) 12/24/20 01:05 Urine Mucus 3+ /HPF 12/24/20 01:05 Plasma/Serum Alcohol < 0.01 % (0-0.07) 12/24/20 03:59 Klein/IV: Voiding Method Toilet Active Medications - Current Medications Current Medications: Generic Name Dose Route Start Last Admin Trade Name Freq PRN Reason Stop Dose Admin Acetaminophen 650 mg 12/24/20 08:00 Acetaminophen 325 Mg Tab PO Q4H PRN Pain MILD(1-3)/Fever >100.5/THOMAS Albuterol 2.5 mg 12/24/20 08:00 Albuterol 2.5 Mg/3 Ml Nebu IH Q4HRT PRN Shortness Of Breath Albuterol 2.5 mg 12/25/20 21:15 Albuterol 2.5 Mg/3 Ml Nebu IH 12/25/20 21:16 ONCE ONE Benzonatate 100 mg 12/24/20 22:00 12/25/20 14:40 Benzonatate 100 Mg Cap PO 100 mg Q8HR VASILIY Administration Dextrose 50 ml 12/24/20 08:00 Dextrose 50% In Water (25gm) 50 Ml Syringe IV Q30MIN PRN Hypoglycemia Protocol Famotidine 20 mg 12/24/20 10:00 12/25/20 11:34 Famotidine 20 Mg/2 Ml Inj IV 20 mg BID VASILIY Administration Hydromorphone HCl 0.5 mg 12/24/20 08:00 Hydromorphone 1 Mg/1 Ml Inj IV Q3H PRN Pain , Severe (7-10) Piperacillin Sod/Tazobactam Sod 4.5 gm in 100 mls @ 200 mls/hr 12/24/20 14:00 12/25/20 14:40 Zosyn/Ns 4.5gm/100ml IV 200 mls/hr Q8HR VASILIY Administration Sodium Chloride 1,000 mls @ 100 mls/hr 12/24/20 20:30 12/25/20 14:40 Nacl 0.9% 1000 Ml IV 100 mls/hr DIRECT VASILIY Administration Morphine Sulfate 2 mg 12/24/20 08:00 12/24/20 23:41 Morphine 2 Mg/1 Ml Inj IV 2 mg Q4H PRN Administration Pain, Moderate (4-6) Naloxone HCl 0.1 mg 12/24/20 08:00 Naloxone 0.4 Mg/1 Ml Inj IV Q2MIN PRN Res Rate </= 8 or 02 SAT < 92% Ondansetron HCl 4 mg 12/24/20 08:00 12/24/20 08:15 Ondansetron 4 Mg/2 Ml Inj IV 4 mg Q8H PRN Administration Nausea And Vomiting Senna 8.6 mg 12/24/20 10:00 Sennosides 8.6 Mg Tab PO Q12HR PRN constipation Sodium Chloride 10 ml 12/24/20 06:53 Sodium Chloride 0.9% 10 Ml Flush Syringe IV PRN PRN LINE FLUSH
--- NOTE | 2020-12-25 15:35 | Progress Note ---
Assessment and Plan 35-year-old male status post laparoscopic cholecystectomy for acute cholecystitis, POD1 Plan: 1. adv to reg diet 2. gentle IVF 3. IV abx - does not need abx upon dc 4. ZANA drain to bulb suction - likely will remove tomorrow if remains serosang and low output 5. prn tessalon pearls for cough 6. prn pain control 7. OOB/ambulate 8. IS/pulm toilet DC planning in am. D/W Dr. Ford Thank you, please call with questions. Subjective Date of service: 12/25/20 Narrative: Patient seen and examined. He states he feels well. He is having some pain near his incisions every time he coughs. He is tolerating a diet. No fevers or chills. No nausea or vomiting. He is tolerating a full liquid diet. Objective Vital Signs - 12hr 12/25/20 12/25/20 12/25/20 08:47 09:16 10:00 Temperature 97.4 F L Pulse Rate 53 L Respiratory 18 Rate Blood Pressure 112/73 O2 Sat by Pulse 100 97 98 Oximetry 12/25/20 11:18 Temperature 98.3 F Pulse Rate 50 L Respiratory 18 Rate Blood Pressure 103/58 O2 Sat by Pulse 99 Oximetry - General physical appearance Narrative Exam: Gen.: Awake, alert, oriented x3. No apparent distress ENT: Trachea midline. No lymphadenopathy. No scleral icterus or conjunctival pallor CV: S1, S2 present Respiratory: No audible wheezes Abdomen: Soft, nondistended, mild tenderness to palpation near surgical incisions, appropriate. All incisions are clean, dry, intact. There is a right-sided ZANA drain which has serosanguineous drainage. No rebound, rigidity, guarding Extremities: No clubbing, cyanosis, edema - Labs 12/25/20 04:20 12/25/20 04:20 Diabetes panel 12/25/20 Range/Units 04:20 Sodium 140 (137-145) mmol/L Potassium 4.1 (3.6-5.0) mmol/L Chloride 104.7 (98-107) mmol/L Carbon Dioxide 28 (22-30) mmol/L BUN 13 (9-20) mg/dL Creatinine 0.6 L (0.8-1.3) mg/dL Glucose 99 (75-100) mg/dL Calcium 8.9 (8.4-10.2) mg/dL AST 51 H (5-40) units/L ALT 59 H (7-56) units/L Alkaline Phosphatase 80 (35-129) units/L Total Protein 6.8 (6.3-8.2) g/dL Albumin 3.6 L (3.9-5) g/dL Calcium panel 12/25/20 Range/Units 04:20 Calcium 8.9 (8.4-10.2) mg/dL Albumin 3.6 L (3.9-5) g/dL Pituitary panel 12/25/20 Range/Units 04:20 Sodium 140 (137-145) mmol/L Potassium 4.1 (3.6-5.0) mmol/L Chloride 104.7 (98-107) mmol/L Carbon Dioxide 28 (22-30) mmol/L BUN 13 (9-20) mg/dL Creatinine 0.6 L (0.8-1.3) mg/dL Glucose 99 (75-100) mg/dL Calcium 8.9 (8.4-10.2) mg/dL Adrenal panel 12/25/20 Range/Units 04:20 Sodium 140 (137-145) mmol/L Potassium 4.1 (3.6-5.0) mmol/L Chloride 104.7 (98-107) mmol/L Carbon Dioxide 28 (22-30) mmol/L BUN 13 (9-20) mg/dL Creatinine 0.6 L (0.8-1.3) mg/dL Glucose 99 (75-100) mg/dL Calcium 8.9 (8.4-10.2) mg/dL Total Bilirubin 0.80 (0.1-1.2) mg/dL AST 51 H (5-40) units/L ALT 59 H (7-56) units/L Alkaline Phosphatase 80 (35-129) units/L Total Protein 6.8 (6.3-8.2) g/dL Albumin 3.6 L (3.9-5) g/dL
--- NOTE | 2020-12-25 15:46 | Operative Report ---
Operative Report Operative Report: Pre-op diagnosis: acute calculus cholecystitis Post-op diagnosis: same Findings: Severely inflamed gallbladder with pericholecystic fluid and thickened wall. Distended with large stones at mid body and neck Adhesions from omentum and duodenum to gallbladder Procedure: laparoscopic cholecystectomy Anesthesia: KENJIA, local Surgeon: KEITH ROSA Estimated blood loss: 50-100ml Pathology: list (gallbladder) Specimen disposition: to lab Condition: stable Disposition: PACU HPI an indication: 35-year-old male who presented to the emergency room with acute onset epigastric and right upper quadrant pain. Work-up in the emergency room revealed a leukocytosis and a CT scan and right upper quadrant ultrasound consistent with acute cholecystitis. No biliary ductal dilatation or abnormal LFTs on labs. It was recommended that the patient undergo cholecystectomy. All risks, benefits, alternatives to surgery were discussed in detail and questions answered. Consent was obtained for laparoscopic, possible open cholecystectomy, possible cholangiogram. Procedure in detail: The patient was identified in the preoperative area and taken back to the operating room, placed on the operating room table in supine position. After anesthesia was induced, the abdomen was prepped and draped in usual sterile fashion and timeout was performed. Local anesthetic was infiltrated into all of the skin incision sites. Using an 11 blade, a supraumbilical incision was made through which a Veress needle was inserted. The position of the veress needle was confirmed with the saline drop test and the abdomen was then insufflated to 15 mmHg without incident. The veress needle was then removed and a 5 mm Optiview trocar placed through this incision. The abdomen was then inspected and there was no underlying injury to any of the abdominal contents. An additional 12 mm subxyphoid port, and 2, 5mm RUQ ports were then placed under direct visualization. The patient was then placed into reverse Trendelberg and tilted to the left. The gallbladder was partially only visualized due to adhesions from the omentum to the gallbladder. These adhesions were partially swept away with a grasper and the fundus of the gallbladder was visualized. The gallbladder was extremely tense, severely indurated and could not be grasped. Therefore it was decided to decompress the gallbladder using a laparoscopic needle and 20 cc syringe. 60 cc of bile was aspirated from the gallbladder. The fundus of the gallbladder was then grasped and retracted cephalad and above the liver. Omental adhesions to the remainder of the gallbladder were dissected using combination of blunt dissection and hook electrocautery until the neck of the gallbladder was identified. There were large stones in the mid body and near the neck of the gallbladder. It was decided to perform a dome down approach. The peritoneum overlying the dome of the gallbladder was scored and the gallbladder was dissected from the liver bed using hook electrocautery with hemostasis achieved along the way. The gallbladder wall was extremely thickened with pericholecystic fluid seen during the dissection. Once the neck of the gallbladder was reached the cystic duct and artery were then very carefully skeletonized. The cystic artery and duct were the only 2 structures seen entering the gallbladder and the critical view was successfully obtained. 2 clips were placed on the proximal aspect of the cystic artery and 1 distally this was transected in between the clips using EndoShears. The cystic duct was very short and thickened due to inflammation. 2 clips were placed on the proximal aspect and one distally and this was transected in between the clips using EndoShears. The clips were seen to traverse the entirety of the duct. There was a small vessel associated with the cystic duct which was clipped. The remainder of the gallbladder was then dissected off the liver bed using hook electrocautery. The gallbladder was placed into a Endo Catch bag and removed from the abdomen via the 12mm port. The 12 mm port was expanded in order to facilitate retrieval of the gallbladder. The gallbladder fossa was then inspected and there was no identifiable active bleeding or bile leakage. The patient was then placed into neutral position and Morison's pouch was irrigated until the irrigant returned clear. Angle powder was sprayed over the liver bed and Surgicel was placed over friable portions of the liver bed in order to further ensure hemostasis. The clips on the cystic duct and artery were visualized and intact. A 19 Thai William drain was placed in the gallbladder fossa and brought out via the right lateral 5 mm port. This was sutured to the skin using a 3-0 nylon drain stitch. The 12 mm port fascia was then closed with 2 figure of 8, 0 Vicryl sutures. The remaining ports were removed under direct visualization. Skin incisions were closed with 4-0 Monocryl subcuticular stitches and skin glue. All skin incisions were once again infiltrated with local anesthetic. A sponge was applied around the ZANA drain and secured with a Tegaderm. At the end case all sponge, instrument, sharp counts were correct 2. The patient was awoken from anesthesia, extubated, and taken to PACU in stable condition.
[2020-12-25] MEDS ORDERED: ALBUTEROL 2.5 MG/3 ML NEBU IH ONE (21:15)
[2020-12-26] MEDS: BENZONATATE 100 MG CAP PO SCH ×2 (05:51→14:29)
[2020-12-26] MEDS: PIPERACIL/TAZOBACTA 4.5/NS 100 4.5 GM/100 ML VIAL IV SCH ×2 (05:51→16:26)
[2020-12-26] MEDS: FAMOTIDINE 20 MG/2 ML INJ IV SCH (09:07)
[2020-12-26 11:34] VITALS: BP 103/60
--- NOTE | 2020-12-26 11:37 | Progress Note ---
Assessment and Plan 35-year-old male status post laparoscopic cholecystectomy for acute cholecystitis, POD2 Plan: 1. reg diet 2. dc IVF 3. IV abx - does not need abx upon dc 4. ZANA drain discontinued 5. prn tessalon pearls for cough 6. prn pain control 7. OOB/ambulate 8. IS/pulm toilet Okay to DC home from surgery standpoint. Patient to follow-up in surgery clinic in 2 weeks. D/W Dr. Ford Thank you, please call with questions. Subjective Date of service: 12/26/20 Narrative: Patient seen and examined. He has no acute complaints. He states he is ready to go home. He tolerated a diet. Objective Vital Signs - 12hr 12/26/20 12/26/20 12/26/20 04:06 07:55 09:56 Temperature 98.8 F 98.1 F Pulse Rate 57 L 54 L Respiratory 18 20 Rate Blood Pressure 103/54 105/62 O2 Sat by Pulse 100 94 94 Oximetry 12/26/20 11:32 Temperature 98.3 F Pulse Rate 50 L Respiratory 20 Rate Blood Pressure 103/60 O2 Sat by Pulse 94 Oximetry - General physical appearance Narrative Exam: Gen.: Awake, alert, oriented x3. No apparent distress ENT: Trachea midline. No lymphadenopathy. No scleral icterus or conjunctival pallor CV: S1, S2 present Respiratory: No audible wheezes Abdomen: Soft, nondistended, nontender. ZANA drain serous. Drain suture cut and bulb taken off suction, drain removed intact. Dry 4 x 4 gauze dressing applied and secured with Tegaderm. Incisions are clean, dry, intact. No rebound, rigidity, guarding Extremities: No clubbing, cyanosis, edema - Labs 12/25/20 04:20 12/25/20 04:20
== END 2020-12-26 16:31 | disposition home or self-care (01) ==
LOC: ED 22:12 → 3A 12-24 06:53 → INTOOBSV 12-24 06:53 → 4A 12-24 19:21
PROVIDERS: ADMIT Internal Medicine Geriatric Medicine; ATTEND Internal Medicine
DX: K81.0 Acute cholecystitis (principal); F10.10 Alcohol abuse, uncomplicated; D72.829 Elevated white blood cell count, unspecified
CPT/HCPCS: 36415; 47562; 74177; 76705; 80053; 81001; 82962; 83690; 83735; 85025; 88304; 94760; 96361; 96365; 96366; 96375; 96376; 99285; A4217; G0378; J0330; J1170; J2270; J2405; J2543; J2704; J2710; J7030; J7120; Q9967; 80320; G0480